=== PATIENT | male | born 1950 | race Caucasian/White ===

== ENCOUNTER → 2016-12-06 | Outpatient (CLI) | payer OTHER ==
[2016-12-06 10:20] LABS: BASO # 0.1 10*3/uL (0.0-0.1); BASO % 0.5 % (0.0-1.0); EOS # 0.1 10*3/uL (0.0-0.4); EOS % 0.8 % (1.0-4.0); HEMATOCRIT 40.6 % (42.0-52.0); HEMOGLOBIN 13.4 g/dl (14.0-18.0); LYMPH # 1.8 10*3/uL (1.3-4.4); LYMPH % 15.6 % (27.0-41.0); MEAN CELL VOLUME 95.5 fl (80.0-94.0); MEAN CORPUSCULAR HGB 31.5 pg (27.0-31.0); MEAN PLATELET VOLUME 8.7 fl (9.6-12.3); MONO # 0.9 10*3/uL (0.1-1.0); MONO % 8.1 % (3.0-9.0); NEUT # 8.6 10*3/uL (2.3-7.9); NEUT % 74.7 % (47.0-73.0); PLATELET COUNT AUTOMATED 439 10*3/uL (130-400); RED BLOOD COUNT 4.25 10*6/uL (4.50-5.90); RED CELL DISTRI WIDTH 13.8 % (0-14.5); WHITE BLOOD COUNT 11.5 10*3/uL (4.8-10.8)
[2016-12-06 10:48] LABS: ALBUMIN 4.2 gm/dl (3.1-4.5); ALKALINE PHOSPHATASE 64 U/L (45-117); BILIRUBIN, TOTAL 0.2 mg/dl (0.2-1.0); BUN 17 mg/dl (7-24); CARBON DIOXIDE 23 mmol/L (21-32); CHLORIDE 109 mmol/L (98-107); CHOLESTEROL 193 mg/dL (<200); EST GLOM FILT AFRICAN AMERICAN > 60 ml/min; GLUCOSE 92 mg/dL (65-99); HDL CHOLESTEROL 51 mg/dl (40-60); LDL CHOLESTEROL 126 mg/dL (9-159); POTASSIUM 4.4 mmol/L (3.5-5.1); SGOT/AST 11 IU/L (3-35); SGPT/ALT 20 U/L (12-78); SODIUM 141 mmol/L (136-145); TOTAL PROTEIN 7.5 gm/dL (6.4-8.2); TRIGLYCERIDES 79 mg/dl (<150); VLDL CHOLESTEROL 16 mg/dL (6-40)
[2016-12-06 11:07] LABS: FOLIC ACID 5.44 ng/mL (>5.38)
[2016-12-08 00:05] LABS: TESTOSTERONE FREE, (DIRECT) 0.9 pg/mL (6.6-18.1)
== END | disposition home or self-care (01) ==
LOC: LAB 09:46
PROVIDERS: Physician Assistant
DX: Z79.899 Other long term (current) drug therapy (principal)

== ENCOUNTER 2017-11-26 11:54 | Emergency (ER) | payer OTHER ==
[~2017-11-26] VITALS: Ht 172.7 cm; Wt 59.0 kg
[2017-11-26] MEDS ORDERED: NEURONTIN100 MG PO (13:56)
== END 2017-11-26 13:57 | disposition home or self-care (01) ==
LOC: ED 11:54
DX: G62.9 Polyneuropathy, unspecified (principal); F17.200 Nicotine dependence, unspecified, uncomplicated

== ENCOUNTER 2018-03-21 15:19 | Emergency (ER) | payer OTHER ==
[~2018-03-21] VITALS: Wt 59.0 kg
[~2018-03-21 15:19] MED LIST: NEURONTIN100 MG PO
[2018-03-21] MEDS ORDERED: PERCOCET 5-3251 EACH PO (16:03)
== END 2018-03-21 16:28 | disposition home or self-care (01) ==
LOC: ED 15:19
DX: G89.29 Other chronic pain (principal); M79.604 Pain in right leg; M79.605 Pain in left leg; F17.200 Nicotine dependence, unspecified, uncomplicated